=== PATIENT | female | born 1960 | race Two or more races ===

== ENCOUNTER → 2022-04-25 13:42 | Outpatient (BNVA) | payer OTHER, SELFPAY | PROVIDERS: Visit Provider Physician Assistant Medical | DX: M25.512 Pain in left shoulder (principal) | CPT/HCPCS: 99202 ==

== ENCOUNTER → 2022-04-30 09:59 | Outpatient (BNVA) | payer OTHER, SELFPAY | PROVIDERS: Visit Provider Internal Medicine | DX: M25.512 Pain in left shoulder (principal) | CPT/HCPCS: 99213 ==